=== PATIENT | female | born 1985 | race Two or more races ===

== ENCOUNTER 2023-09-26 12:12 | Emergency (ER) | payer SELFPAY ==
[2023-09-26 12:22] VITALS: PULSE 101; RESP 20; TEMP 37.3; O2SAT 99; BMI 37.8
[2023-09-26 12:26] VITALS: BP 147/91
--- NOTE | 2023-09-26 12:38 | XR_ITS ---
The [address] [address] Patient Name: FAUSTINO GUAMAN MRN: [id number] date: 1985 Sex: F Assigned Patient Location: ER Current Patient Location: Accession/Order Number: [id number] Exam Date: 09/26/2023 13:00 Report Date: 09/26/2023 14:02 At the request of: SB PINTO Procedure: XR hip LT min 2V EXAM: XR hip LT min 2V HISTORY: Atraumatic pain COMPARISON: None. TECHNIQUE: AP, lateral, radiographs of the hip labeled left FINDINGS: No acute fracture, dislocation, or joint pathology. Normal mineralization and alignment. IUD over the pelvis. XR/XR hip LT min 2V IMPRESSION: 1. No acute osseous abnormality. Electronically authenticated by: MAIKOL ARAYA Date: 09/26/2023 14:02
--- NOTE | 2023-09-26 12:39 | ED.URI1 ---
HPI - URI/Sore Throat General Chief Complaint: Upper Respiratory Infection Stated Complaint: SORE THROAY Time Seen by Provider: 09/26/23 12:34 Source: patient Limitations: no limitations History of Present Illness HPI Narrative: 37-year-old female presents for cough. 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 No fever or vomiting. She has also had left hip pain for few weeks without any preceding trauma or unusual activity. She points to the greater trochanter area of the hip to indicate the region of pain. Related Data Allergies Allergy/AdvReac Type Severity Reaction Status Date / Time No Known Drug Allergies Allergy Verified 09/26/23 12:26 Review of Systems ROS Narrative A ten point review of systems is negative except as noted above. PFSH PFSH Social History Smoking status: Never smoker Exam Narrative Exam Narrative: Nurses note and vital signs reviewed and patient is not hypoxic. General: The patient appears well and in no apparent distress. Patient is resting comfortably on cart. Skin: Warm, dry, no pallor noted. There is no rash noted. Head: Normocephalic, atraumatic Eye: Normal conjunctiva, no drainage Ears, Nose, Mouth, and Throat: oral mucosa is moist. Nares patent; no pharyngeal exudate Cardiovascular: Regular Rate and Rhythm Respiratory: Patient is in no distress, no accessory muscle use, lungs are clear to auscultation, no wheezing, rales or rhonchi Back: non-tender GI: Normal bowel sounds, no tenderness to palpation, no masses appreciated. No rebound, guarding, or rigidity noted. Musculoskeletal: Left hip has no bruises or rash or erythema. She has tenderness on palpation. Neurological: A&O, normal speech Psychiatric: Cooperative Constitutional Vital Signs, click to edit/add: Last Vital Signs Temp 99.1 F 09/26/23 12:22 Pulse 88 09/26/23 13:37 Resp 18 09/26/23 13:37 BP 138/88 09/26/23 13:37 Pulse Ox 98 09/26/23 13:37 O2 Del Method Room Air 09/26/23 12:22 Course Vital Signs Vital signs: Vital Signs Temperature 99.1 F 09/26/23 12:22 Pulse Rate 101 H 09/26/23 12:22 Respiratory Rate 20 09/26/23 12:22 Pulse Oximetry 99 09/26/23 12:22 Oxygen Delivery Method Room Air 09/26/23 12:22 Temperature 99.1 F 09/26/23 12:22 Pulse Rate 88 09/26/23 13:37 Respiratory Rate 18 09/26/23 13:37 Blood Pressure 138/88 09/26/23 13:37 Pulse Oximetry 98 09/26/23 13:37 Oxygen Delivery Method Room Air 09/26/23 12:22 MDM - URI/Sore Throat MDM Narrative Medical decision making narrative: Influenza test is positive. Findings are discussed with the patient and she was given a work note. Treatment diagnosis and follow-up were discussed with the patient Differential Diagnosis Differential diagnosis: Likely upper respiratory infection and other (COVID, strep) Lab Data Attestation: I reviewed the patient's lab results. Labs: Lab Results 09/26/23 Range/Units 12:31 Influenza Type A Ag Positive A Influenza Type B Ag Negative SARS-CoV-2 Ag (CV2AG) Negative (NEGATIVE) Streptococcus Screen Negative Discharge Plan Discharge Chief Complaint: Upper Respiratory Infection Clinical Impression: Influenza Patient Disposition: Home, Self-Care Time of Disposition Decision: 13:44 Condition: Good Mode of Transportation: Private Vehicle Instructions: Influenza (ED) Stand Alone Forms: Portal Instructions Referrals: Physician,Non-Staff, MD [Primary Care Provider] - 1 week
[2023-09-26 12:54] LABS: Influenza Virus A Antigen Positive; Influenza Virus B Antigen Negative; Internal Control Within Normal Limits; SARS-CoV-2 Ag NEGATIVE (NEGATIVE); Strep A Antigen Screen Negative
[2023-09-26 13:37] VITALS: BP 138/88; PULSE 88; RESP 18; O2SAT 98
== END 2023-09-26 13:52 | disposition home or self-care (01) ==
PROVIDERS: Emergency Provider Emergency Medicine
DX: J10.1 Influenza due to other identified influenza virus with other respiratory manifestations (principal); M25.552 Pain in left hip
CPT/HCPCS: 73502; 87070; 87804; 87811; 87880; 99284